=== PATIENT | female | born 1960 | race Caucasian/White ===

== ENCOUNTER 2023-04-14 09:31 | Observation (INO) | payer BC ==
[2023-04-14] MEDS ORDERED: MORPHINE 4 MG/ML SYR ONE (10:25)
[2023-04-14] MEDS ORDERED: METOCLOPRAMIDE 10 MG/2mL INJ ONE (10:25)
[2023-04-14] MEDS ORDERED: NA CHLORIDE 0.9% 50 ML ONE (10:25)
[2023-04-14] MEDS ORDERED: DIPHENHYDRAMINE 50 MG/ML VIAL ONE (10:25)
[2023-04-14] MEDS ORDERED: NA CHLORIDE 0.9% 1,000 ML ONE ×2 (10:26→17:49)
[2023-04-14 10:54] LABS: Absolute Lymphocytes (CBC) 0.7 K/uL (0.7-4.9); Hematocrit 43.4 % (36.0-45.0); MCV 92.6 fL (80-100); MPV 7.1 fL (7.6-11.3); Platelets 223 thou/uL (152-406); RBC Red Blood Cell Count 4.68 M/uL (3.86-4.86)
[2023-04-14 11:16] LABS: Albumin 3.9 g/dL (3.4-5.0); Bilirubin Total 0.6 mg/dL (0.2-1.0); Protein, Total 7.6 g/dL (6.4-8.2); Troponin High Sensitivity 6.5 pg/mL (<58.9)
--- NOTE | 2023-04-14 12:04 | RAD REPORT ---
EXAM DESCRIPTION: CT - Angio Aorta For Dissection - 04/14/2023 11:44 am CLINICAL HISTORY: . Chest and abd pain COMPARISON: 2010 CT chest TECHNIQUE: Computed tomography angiography of the chest, abdomen pelvis were obtained. 100 cc Isovue 370 was administered intravenously. Coronal and sagittal reconstruction were performed. MIP 3D reconstruction was performed All CT scans are performed using dose optimization technique as appropriate and may include automated exposure control or mA/KV adjustment according to patient size. FINDINGS: An aortic dissection is not seen. An aortic aneurysm is not displayed. The celiac, SMA and MARA are patent . A lung consolidation is not present. A pericardial effusion is not seen. A pleural effusion is not no robbie. Gallbladder is distended with thickened wall. The liver,spleen, pancreas,adrenals and kidneys demonstrate no significant abnormality. There no evidence diverticulitis. Small duodenal diverticulum 17 millimeter left thyroid nodule IMPRESSION: Negative for an aortic dissection. Distended gallbladder with thickened wall probably cholecystitis 17 millimeter left thyroid nodule. Ultrasound recommended
--- NOTE | 2023-04-14 12:05 | RAD REPORT ---
EXAM DESCRIPTION: Compa Single View04/14/2023 10:27 am CLINICAL HISTORY: Chest pain COMPARISON: 2010 FINDINGS: The lungs appear clear of acute infiltrate. The heart is normal size. Breast implants IMPRESSION: No acute abnormalities displayed
[2023-04-14] MEDS ORDERED: PIPERACIL/TAZO 3.375 GM VIAL IV ONE (12:41)
--- NOTE | 2023-04-14 13:45 | RAD REPORT ---
EXAM DESCRIPTION: US - Abdomen Exam Limited - 04/14/2023 1:00 pm CLINICAL HISTORY: ABD PAIN COMPARISON: No comparisons TECHNIQUE: Sonographic grayscale and color flow images of the right upper abdominal quadrant were o btained. FINDINGS: The gallbladder demonstrates sludge and multiple shadowing gallstones. Trace pericholecyst ic fluid, and gallbladder wall thickening, up to 6 mm. The common bile duct is normal measuring 4 mm. The liver demonstrates no findings of intrahepatic biliary dilatation. IMPRESSION: Cholelithiasis and sludge within distended gallbladder with thickened wall and trace per icholecystic fluid. Findings raise concern for acute cholecystitis.
--- NOTE | 2023-04-14 14:20 | ER ---
Nurse's Notes [facility] Name: Dai Lovell Age: 62 yrs Sex: Female : 1960 Arrival Date: 04/14/2023 Time: 09:31 Bed 7 Private MD: Kurt Duarte B Diagnosis: Acute cholecystitis Presentation: 04/14 09:45 Chief complaint: Patient states: she woke up this morning with abdominal pain that ap3 radiated into her chest and back. patient states her pain is currently an 8/10 on the pain scale. Coronavirus screen: At this time, the client does not indicate any symptoms associated with coronavirus-19. Ebola Screen: No symptoms or risks identified at this time. Initial Sepsis Screen: Does the patient meet any 2 criteria? No. Patient's initial sepsis screen is negative. Does the patient have a suspected source of infection? Yes: Acute abdominal pain. Risk Assessment: Do you want to hurt yourself or someone else? Patient reports no desire to harm self or others. Onset of symptoms was April 14, 2023. 09:45 Method Of Arrival: Ambulatory ap3 09:49 Chief complaint: Patient states: she adds that when the pain comes on, it makes her ap3 heart feel like it is being squeezed. 09:49 Acuity: JACQUELINE 2 ap3 Triage Assessment: 09:48 General: Appears uncomfortable, Behavior is calm, cooperative. Pain: Complains of pain ap3 in back, chest and abdomen Pain currently is 8 out of 10 on a pain scale. Quality of pain is described as crampy, sharp, stabbing, Pain began suddenly. Neuro: Level of Consciousness is awake, alert, obeys commands, Oriented to person, place, time, situation, Appropriate for age. Cardiovascular: Patient's skin is warm and dry. Respiratory: Airway is patent Respiratory effort is even, unlabored, Respiratory pattern is regular, symmetrical. GI: Reports nausea, vomiting. Historical: - Allergies: 09:47 No Known Allergies; ap3 - Home Meds: 09:47 Mounjaro subcutaneous [Active]; ap3 - PMHx: 09:47 None; ap3 - Immunization history:: Client reports receiving the 2nd dose of the Covid vaccine. - Social history:: Smoking status: Patient denies any tobacco usage or history of. Screenin:49 [facility] ED Fall Risk Assessment (Adult) History of falling in the last 3 months, ap3 including since admission No falls in past 3 months (0 pts). Abuse screen: Denies threats or abuse. Nutritional screening: No deficits noted. Tuberculosis screening: No symptoms or risk factors identified. Assessment: 09:48 Reassessment: please see triage assessment. kc6 10:48 Reassessment: Patient appears in no apparent distress at this time. No changes from 6 previously documented assessment. Patient and/or family updated on plan of care and expected duration. Pain level reassessed. Patient is alert, oriented x 3, equal unlabored respirations, skin warm/dry/pink. 11:40 Reassessment: Patient appears in no apparent distress at this time. No changes from kc6 previously documented assessment. Patient and/or family updated on plan of care and expected duration. Pain level reassessed. Patient is alert, oriented x 3, equal unlabored respirations, skin warm/dry/pink. 12:54 Reassessment: US at bedside. ph Vital Signs: 09:45 BP 147 / 99; Pulse 92; Resp 18; Temp 97.9; Pulse Ox 98% ; Weight 63.5 kg; Height 5 ft. ap3 3 in. ; Pain 8/10; 12:00 BP 132 / 78; Pulse 87; Resp 18; Pulse Ox 98% on R/A; ph 13:30 BP 149 / 87; Pulse 89; Resp 18; Pulse Ox 100% on R/A; ph 14:30 BP 138 / 90; Pulse 87; Resp 16; Temp 98; Pulse Ox 100% on R/A; ph 09:45 Body Mass Index 24.80 (63.50 kg, 160.02 cm) ap3 09:45 Pain Scale: Adult ap3 ED Course: 09:33 Patient arrived in ED. mr 09:33 Kurt Duarte MD is Private Physician. mr 09:37 Gerardo Hansen MD is Attending Physician. ec2 09:47 Triage completed. ap3 09:49 Arm band placed on right wrist. ap3 10:19 Jaylene Allan, KAILEY is Primary Nurse. ph 10:29 XRAY Chest (1 view) In Process Unspecified. EDMS 11:46 Angio Aorta For Dissection In Process Unspecified. EDMS 12:12 Patient has correct armband on for positive identification. Placed in gown. Bed in low ph position. Call light in reach. Side rails up X2. Door closed. Noise minimized. 12:53 Lactate w/ 2H reflex if indic. Sent. ap3 13:02 US Abdomen Limited In Process Unspecified. EDMS 14:20 Roberto Guy MD is Hospitalizing Provider. ec2 14:25 Inserted saline lock: 22 gauge in right forearm, using aseptic technique. ap3 14:26 Missed attempt(s): 22 gauge in right forearm. ap3 15:16 No provider procedures requiring assistance completed. Patient admitted, IV remains in ph place. Administered Medications: 10:41 Drug: NS 0.9% IV 1000 ml IV at 1 bolus Per protocol; 1000 mL bolus Route: IV; Rate: 1 kc6 bolus; Site: right antecubital; 12:00 Follow up: Response: No adverse reaction; IV Status: Completed infusion; IV Intake: ph 1000ml 10:42 Drug: morphine IVP or IV 4 mg IVP once over 4 mins Route: IVP; Infused Over: 4 mins; kc6 Site: right antecubital; 15:17 Follow up: Response: No adverse reaction ph 10:42 Drug: metoCLOPramide IVP 10 mg IVP once; over 1 to 2 minutes Route: IVP; Site: right kc6 antecubital; 15:17 Follow up: Response: No adverse reaction ph 10:42 Drug: diphenhydrAMINE IVP 25 mg IVP once Route: IVP; Site: right antecubital; kc6 15:17 Follow up: Response: No adverse reaction ph 15:09 Drug: Piperacillin-Tazobactam IVPB 3.375 grams IVPB once over 60 mins; (mix in NS 100 ph mL) Route: IVPB; Infused Over: 60 mins; Site: right antecubital; 15:17 Follow up: Response: No adverse reaction; IV Status: Infusion continued upon admission ph Medication: 15:16 VIS not applicable for this client. ph Intake: 12:00 IV: 1000ml; Total: 1000ml. ph Outcome: 14:20 Decision to Hospitalize by Provider. ec2 15:16 Admitted to OR accompanied by nurse, family with patient, via wheelchair, with chart, ph 15:16 Condition: stable 15:16 Instructed on the need for admit, 15:18 Patient left the ED. ph Signatures: Dispatcher [employer] ED Cortney Ojeda, Reg Reg mr JerrellJaylene, RN RN ph Adelia Marsh RN RN ap3 Sue Rosales RN RN kc6 Gerardo Hansen MD MD ec2 Corrections: (The following items were deleted from the chart) 09:49 09:45 Acuity: JACQUELINE 3 ap3 ap3 14:25 14:24 Missed attempt(s): 22 gauge in right forearm. ph ph
--- NOTE | 2023-04-14 14:20 | EDPHYS ---
Physician Documentation [facility] Name: Dai Lovell Age: 62 yrs Sex: Female : 1960 Arrival Date: 04/14/2023 Time: 09:31 Bed 7 Private MD: Kurt Duarte B ED Physician Gerardo Hansen HPI: 04/14 10:06 This 62 yrs old Female presents to ER via Ambulatory with complaints of ec2 Abdominal Pain, Vomiting/Diarrhea. 10:06 Patient arrives today for evaluation of abdominal pain. States that she started having ec2 some abdominal pain about 9 hours ago. Patient reports that she is having some nausea as well as some pain radiating into the chest. Patient reports that she has previous abdominal surgeries including umbilical hernia as well as previous C-sections. Patient denies urinary complaints. Patient reports otherwise no cough and cold symptoms. Patient reports that the pain radiates to her back as well. Patient reports that also she has been on Mounjaro for about 1 year.. Historical: - Allergies: 09:47 No Known Allergies; ap3 - Home Meds: 09:47 Mounjaro subcutaneous [Active]; ap3 - PMHx: 09:47 None; ap3 - Immunization history:: Client reports receiving the 2nd dose of the Covid vaccine. - Social history:: Smoking status: Patient denies any tobacco usage or history of. ROS: 10:06 Constitutional: as per hpi ec2 Exam: 10:06 Constitutional: GEN: NAD Head: atraumatic Eyes: EOMI Ears: External ears are ec2 normal. CV: regular rate, no murmur appreciated LUNGS: no respiratory distress, no wheezes, rales, or rhonchi ABD: non-distended, general TTP, no guarding, not rigid SKIN: no evidence of rashes MSK: no evidence of trauma NEURO: moves all extremities equally Vital Signs: 09:45 BP 147 / 99; Pulse 92; Resp 18; Temp 97.9; Pulse Ox 98% ; Weight 63.5 kg; Height 5 ft. ap3 3 in. ; Pain 8/10; 12:00 BP 132 / 78; Pulse 87; Resp 18; Pulse Ox 98% on R/A; ph 13:30 BP 149 / 87; Pulse 89; Resp 18; Pulse Ox 100% on R/A; ph 14:30 BP 138 / 90; Pulse 87; Resp 16; Temp 98; Pulse Ox 100% on R/A; ph 09:45 Body Mass Index 24.80 (63.50 kg, 160.02 cm) ap3 09:45 Pain Scale: Adult ap3 MDM: 10:06 Patient medically screened. ec2 10:06 Data reviewed: vital signs. ED course: Patient arrives today for evaluation of chest ec2 and abdominal pain. Examination remarkable for uncomfortable appearing individual was otherwise hemodynamically appropriate. Will obtain lab work, EKG, chest x-ray, CT imaging. Currently considering processes such as pancreatitis, ACS, dissection. Will treat the patient's pain with IV morphine, crystalloid as well as Reglan and Benadryl. . 11:44 ED course: CBC remarkable for slight leukocytosis. Metabolic profile shows hypokalemia ec2 noted. Lipase within normal ranges. Troponin within normal ranges. Patient does meet SIRS criteria however I have no acute identified bacterial infection and will defer antibiotic therapy at this time. . 12:11 ED course: CT imaging shows concern for possible cholecystitis, will obtain ultrasound ec2 for further elucidation of this. Patient does meet SIRS criteria with the heart rate as well as the white count, will add on a septic workup and add Zosyn for abdominal coverage.. 12:52 ED course: Of note patient with incidental thyroid nodule, instructed her to follow-up ec2 outpatient for this.. 14:09 ED course: EKG independently reviewed and interpreted by me, shows normal sinus rhythm, ec2 rate of 84, no acute ST segment elevations, nonconcerning intervals.. 14:19 ED course: I discussed the case with general surgery who will consult on the patient. ec2 Discussed case with hospitalist, pending admission.. 04/14 10:06 Order name: CBC with Diff; Complete Time: 11:44 ec2 04/14 10:06 Order name: Troponin HS; Complete Time: 11:44 ec2 04/14 10:06 Order name: CMP; Complete Time: 11:44 ec2 04/14 10:06 Order name: Lipase; Complete Time: 11:44 ec2 04/14 12:11 Order name: Blood Culture Adult (2) ec2 04/14 12:11 Order name: Lactate w/ 2H reflex if indic.; Complete Time: 13:31 ec2 04/14 12:11 Order name: Protime (+inr) ec2 04/14 12:11 Order name: Ptt, Activated ec2 04/14 10:06 Order name: XRAY Chest (1 view); Complete Time: 12:10 ec2 04/14 10:52 Order name: Angio Aorta For Dissection; Complete Time: 12:10 EDMS 04/14 12:11 Order name: US Abdomen Limited; Complete Time: 14:09 ec2 04/14 10:06 Order name: EKG; Complete Time: 10:07 ec2 04/14 10:06 Order name: Cardiac monitoring; Complete Time: 10:41 ec2 04/14 10:06 Order name: EKG - Nurse/Tech; Complete Time: 14:02 ec2 04/14 10:06 Order name: IV Saline Lock; Complete Time: 10:41 ec2 04/14 10:06 Order name: Labs collected and sent; Complete Time: 10:41 ec2 04/14 10:06 Order name: O2 Per Protocol; Complete Time: 10:41 ec2 04/14 10:06 Order name: O2 Sat Monitoring; Complete Time: 10:41 ec2 04/14 12:11 Order name: Accucheck; Complete Time: 12:32 ec2 04/14 12:11 Order name: IV Saline Lock - Large Bore; Complete Time: 12:32 ec2 04/14 12:11 Order name: Vital Signs; Complete Time: 12:32 ec2 04/14 15:03 Order name: NPO; Complete Time: 15:05 iw Administered Medications: 10:41 Drug: NS 0.9% IV 1000 ml IV at 1 bolus Per protocol; 1000 mL bolus Route: IV; Rate: 1 kc6 bolus; Site: right antecubital; 12:00 Follow up: Response: No adverse reaction; IV Status: Completed infusion; IV Intake: ph 1000ml 10:42 Drug: morphine IVP or IV 4 mg IVP once over 4 mins Route: IVP; Infused Over: 4 mins; kc6 Site: right antecubital; 15:17 Follow up: Response: No adverse reaction ph 10:42 Drug: metoCLOPramide IVP 10 mg IVP once; over 1 to 2 minutes Route: IVP; Site: right kc6 antecubital; 15:17 Follow up: Response: No adverse reaction ph 10:42 Drug: diphenhydrAMINE IVP 25 mg IVP once Route: IVP; Site: right antecubital; kc6 15:17 Follow up: Response: No adverse reaction ph 15:09 Drug: Piperacillin-Tazobactam IVPB 3.375 grams IVPB once over 60 mins; (mix in NS 100 ph mL) Route: IVPB; Infused Over: 60 mins; Site: right antecubital; 15:17 Follow up: Response: No adverse reaction; IV Status: Infusion continued upon admission ph Disposition Summary: 04/14/23 14:20 Hospitalization Ordered Notes: Hospitalization Status: Inpatient Admission ec2 Provider: Roberto Guy ec2 Location: Telemetry/MedSurg (Inpatient) ec2 Condition: Stable ec2 Problem: new ec2 Symptoms: have improved ec2 Bed/Room Type: Standard ec2 Room Assignment: ec2 Diagnosis - Acute cholecystitis ec2 Forms: - Medication Reconciliation Form ec2 - SBAR form ec2 - Leadership Thank You Letter ec2 Critical care time excluding procedures: 14:09 Critical care time: Bedside Care: 30 minutes, Consultation: 5 minutes. Total time: 35 ec2 minutes Signatures: Dispatcher [employer] Jailene Hernandez RN RN iw Jaylene Allan RN RN ph Adelia Marsh RN RN ap3 Sue Rosales RN RN kc6 Gerardo Hansen MD MD ec2 Corrections: (The following items were deleted from the chart) 10:08 10:06 Patient arrives today for evaluation of abdominal pain. States that she started ec2 having some abdominal pain about 9 hours ago. Patient reports that she is having some nausea as well as some pain radiating into the chest. Patient reports that she has previous abdominal surgeries including umbilical hernia as well as previous C-sections. Patient denies urinary complaints. Patient reports otherwise no cough and cold symptoms.. ec2 10:52 10:07 Chest Abdomen Pelvis W Con+CT.RAD.BRZ ordered. EDMS EDMS
[2023-04-14] MEDS ORDERED: BUPIVACAINE 0.25% PF 30 ML VIAL ONE (15:15)
[2023-04-14] MEDS ORDERED: Ringers Lactate 1,000 ML IV ONE (15:23)
[2023-04-14] MEDS ORDERED: SUCCINYLCHOLINE 20 MG/ML (10 ML) IV ONE (15:25)
--- NOTE | 2023-04-14 15:28 | P.HP ---
Certification for Inpatient Patient admitted to: Observation With expected LOS: <2 Midnights Patient will require the following post-hospital care: None Practitioner: I am a practitioner with admitting privileges, knowledge of patient current condition, hospital course, and medical plan of care. Services: Services provided to patient in accordance with Admission requirements found in Title 42 Section 412.3 of the Code of Federal Regulations Patient History Date of Service: 04/14/23 Reason for admission: Acute cholecystitis History of Present Illness: 62-year-old female with distant history of breast cancer presents emergency department with chief complaint of abdominal pain radiating to her back with nausea/vomiting. Her pain started at around 1:30 in the morning. She last ate at around 8 PM the night before fried eggs and toast. She was evaluated in the emergency department and her labs are significant for leukocytosis with white blood cell count 12.2 potassium 3.0 glucose 126 lactic acid 0.9 CTA dissection protocol was performed which was negative for aortic dissection showed distended gallbladder with thickened wall probably chol ecystitis, 17 mm left thyroid nodule ultrasound recommended. Follow-up abdominal ultrasound was performed showed cholelithiasis and sludge within distended gallbladder and thickened wall with trace pericholecystic fluid findings raising concern for acute cholecystitis. Patient was evaluated at bedside by general surgery and surgery plans to take her to the operating room this evening for laparoscopic cholecystectomy. - Past Medical/Surgical History -: Breast cancer 2002 -: , D&C -: Hernia repair -: Bilateral mastectomy with reconstruction -: Abdominoplasty Psychosocial/ Personal History: Lives at home with family - Social History Smoking Status: Never smoker Alcohol use: No CD- Drugs: No Caffeine use: Yes Place of Residence: Home Review of Systems 10-point ROS is otherwise unremarkable Gastrointestinal: Nausea, Vomiting, Abdominal Pain Physical Examination - Physical Exam General: Alert, In no apparent distress, Oriented x3 HEENT: Atraumatic, PERRLA Neck: Supple, 2+ carotid pulse no bruit Respiratory: Clear to auscultation bilaterally, Normal air movement Cardiovascular: Regular rate/rhythm, Normal S1 S2 Gastrointestinal: Normal bowel sounds, Tenderness (mild epigastric tenderness) Musculoskeletal: No tenderness Integumentary: No rashes Neurological: Normal speech, Normal strength at 5/5 x4 extr, Normal tone - Studies Laboratory Data (last 24 hrs) 04/14/23 04/14/23 10:40 10:40 WBC 12.20 H Hgb 15.0 Hct 43.4 Plt Count 223 Sodium 139 Potassium 3.0 L BUN 13 Creatinine 0.68 Glucose 126 H Total Bilirubin 0.6 AST 15 ALT 24 Alkaline Phosphatase 81 Lipase 22 Assessment and Plan - Plan Assessment: Sepsis secondart to acute cholecystitis History of breast cancer-2002 Plan: Sepsis secondart to acute cholecystitis SIRS criteria raise including leukocytosis, tachycardia, source of infection with cholecystitis Blood cultures obtained, lactate less than 2 NPO, IVF, plan for laparoscopic cholecystectomy today As needed pain medications Advance diet per general surgery History of breast cancer-2002 DVT PPX:SCD Code status:Full - Advance Directives Does patient have a Living Will: No Does patient have a Durable POA for Healthcare: No Critical Care: No Time Spent Managing Pts Care (In Minutes): 55
[2023-04-14] MEDS ORDERED: ROCURONIUM 50 MG/5 ML VIAL IV ONE (15:32)
[2023-04-14] MEDS ORDERED: propofoL 200 MG/20 ML VIAL IV ONE (15:33)
[2023-04-14] MEDS ORDERED: FENTANYL CITR 100 MCG/2 ML ONE (15:33)
[2023-04-14] MEDS ORDERED: MIDAZOLAM HCL 2 MG/2 ML INJ ONE (15:33)
[2023-04-14] MEDS ORDERED: MORPHINE 2 MG/ML SYR IV PRN (15:48)
[2023-04-14] MEDS ORDERED: ONDANSETRON 4 MG/2 ML VIAL IV PRN (15:48)
[2023-04-14] MEDS: NA CHLORIDE 0.9% 1,000 ML IV SCH (16:00)
[2023-04-14] MEDS ORDERED: dexAMETHasone 10 MG/ML VIAL ONE (17:17)
[2023-04-14] MEDS ORDERED: ONDANSETRON 4 MG/2 ML VIAL ONE (17:17)
[2023-04-14] MEDS ORDERED: NEOSTIGMINE 1 MG/ML -10 ML VIAL ONE (17:19)
[2023-04-14] MEDS ORDERED: GLYCOPYRROLATE 0.2 MG/ML SYR ONE (17:20)
--- NOTE | 2023-04-14 17:28 | P.OP ---
Preoperative diagnosis: Acute Calculous Cholecystitis Postoperative diagnosis: Acute Calculous Cholecystitis Primary procedure: Laparoscopic Cholecystectomy with ICG Anesthesia: GETA + Local Estimated blood loss: <10cc Specimen: Gallbladder Findings: Distended dilated, gallstones, hydrops, intrahepatic Complications: None Transferred to: Recovery Room Condition: Good
[2023-04-14] MEDS ORDERED: HYDROCODONE/APAP 5/325 MG TAB PO PRN (17:43)
[2023-04-14] MEDS ORDERED: HYDROMORPHONE HCL 1 MG/ML INJ ONE (17:44)
[2023-04-14] MEDS: ONDANSETRON 4 MG/2 ML VIAL ONE ×2 (17:44→17:45)
[2023-04-14] MEDS: KETOROLAC 30 MG/ML INJ ONE ×2 (17:45→17:47)
[2023-04-14] MEDS: HYDROMORPHONE HCL 1 MG/ML INJ ONE ×3 (17:55→18:05)
[2023-04-14 18:08] VITALS: O2SAT 94
--- NOTE | 2023-04-14 20:16 | OP ---
Date of Procedure: 04/14/2023 Surgeon: Robbie Kowalski MD, Preoperative Diagnosis: Acute calculous cholecystitis. Postoperative Diagnosis: Acute calculous cholecystitis. Procedure Performed: Laparoscopic cholecystectomy with indocyanine green cholangiography. Anesthesia: General endotracheal plus local with 0.25% Marcaine. Estimated Blood Loss: Less than 10 cc. Specimen: Gallbladder. Findings: 1.Distended gallbladder. 2.Gallstones. 3.Hydropic gallbladder. 4.Gallbladder was partially intrahepatic. 5.Gallbladder had a lateral course. Complications: None. Disposition: Patient transferred to recovery room in good condition. Procedure In Detail: After informed consent was obtained, patient was brought to the operating room, prepped and draped in the usual sterile fashion after adequate anesthesia was achieved. I made a dumont praumbilical incision down through subcutaneous tissues. I used a 5 mm 0-degree optical trocar and i ntroduced to the abdomen without evidence of complication. Insufflation was obtained to 15 mmHg at t his time. There was no injury to vital structures upon entry of the abdomen. Two additional trocars were placed, one in the epigastrium, one in the right upper quadrant. Both of these were 5 mm troca rs placed under direct visualization without incident or complication. The umbilical trocar was then upsized to a 12 mm under direct visualization without incident or complication. I then attempted to grasp the patient's gallbladder which was unable to be grasped at this time. It was quite thickened , inflamed, and hydropic. I then placed a decompression needle in the fundus of the gallbladder, dec ompressed the gallbladder as much as possible, at this point. However, it remained thickened through out the entire procedure and difficult to manage and difficult to manipulate due to its significant l ateral course as well as its significant gallstone burden. I dissected down to the Jackie's pouch of the gallbladder using electrocautery. I encircled 2 structures identified as both the cystic duct and cystic artery. These were encircled at this point. I performed indocyanine green cholangiograp hy and was able to visualize the cystic duct, common duct confluence. I then placed double titanium clips on the proximal side and singly on the distal side of both the cystic duct and cystic artery. I then ligated these structures using Endo Elizabeth. I then removed the gallbladder from the hepatic f gladys without incident or complication. I then placed the gallbladder in the EndoCatch bag and attemp robbie to remove through the umbilical trocar. However, the gallbladder was quite large, distended and firm. As such, I had to extend the incision of the midline trocar to over double the size and attemp t still required additional dilatation of the umbilicus. At this point, I ultimately got the gallbla dder out through the EndoCatch bag and sent it off for pathologic examination. Then, at this point, reinsufflation was obtained at this point. I irrigated the gallbladder bed and suctioned out all eff luent. There was no leakage of bile. Clips were found to be in good anatomic position. I did perfo rm some additional fulguration of the gallbladder bed near the mid and distal aspect of the gallbladd er bed which was superior laterally oriented. I irrigated the area once again and suctioned out the remaining effluent. No additional hemostatic measures were required. I then used a Gabriel-Martinez suture passer and passed multiple passes of an 0 Vicryl suture to reapproximate the fascia at the sup raumbilical trocar site. The abdomen was completely desufflated under direct visualization without i ncident or complication. All skin incisions were then copiously irrigated and closed with interrupte d sunita and a sterile dressing placed over top. The patient tolerated the procedure without incide nt or complication, transferred to PACU in good condition. All counts were correct at the end of the case. LISA/SON Voice ID: [id number] Report ID: [id number]
[2023-04-14] MEDS: PIPER TAZO 3.375 GM in NA CHLORIDE 0.9% 100 ML IV SCH (23:08)
[2023-04-14 23:34] VITALS: BMI 24.7
[2023-04-15] MEDS: PIPER TAZO 3.375 GM in NA CHLORIDE 0.9% 100 ML IV SCH ×2 (01:00→08:57)
[2023-04-15 02:13] LABS: Absolute Lymphocytes (CBC) 0.7 K/uL (0.7-4.9); Hematocrit 37.1 % (36.0-45.0); Lymphocytes % 5.8 % (15.3-44.8); MCV 93.1 fL (80-100); MPV 7.3 fL (7.6-11.3); Platelets 191 thou/uL (152-406); RBC Red Blood Cell Count 3.99 M/uL (3.86-4.86)
[2023-04-15 02:17] LABS: Protime INR 1.15
[2023-04-15] MEDS: NA CHLORIDE 0.9% 1,000 ML IV SCH (02:33)
[2023-04-15 02:35] LABS: Albumin 3.1 g/dL (3.4-5.0); Bilirubin Total 0.5 mg/dL (0.2-1.0); Potassium 3.6 mEq/L (3.5-5.1); Thyroid Stimulating Hormone 0.263 uIU/mL (0.358-3.740)
[2023-04-15 02:48] LABS: Blood Morphology Comment NOT SEEN (NOT SEEN); Platelet Estimate ADEQ
[2023-04-15] MEDS ORDERED: POTASSIUM CL SA 10 MEQ TAB PO ONE (09:00)
[2023-04-15 09:01] VITALS: BP 98/56; TEMP 98.1
--- NOTE | 2023-04-15 14:06 | P.DS ---
Admission Date: 04/14/23 Discharge Date: 04/15/23 Disposition: ROUTINE DISCHARGE Discharge Condition: GOOD Reason for Admission: Acute cholecystitis Brief History of Present Illness: Diagnosis: Sepsis secondart to acute cholecystitis History of breast cancer-2002 Hospital Course: Dai Lovell is a 62-year-old female with distant history of breast cancer presents to the emergency department with chief complaint of abdominal pain radiating to her back with nausea/vomiting. CTA dissection protocol was performed which was negative for aortic dissection but showed a distended gallbladder with thickened wall probably cholecystitis, 17 mm left thyroid nodule ultrasound recommended. Follow-up abdominal ultrasound was performed showed cholelithiasis and sludge within distended gallbladder and thickened wall with trace pericholecystic fluid findings raising concern for acute cholecystitis. Dr. Kowalski was consulted and Dai went to surgery for laparoscopic cholecystectomy. She has tolerated the procedure well and has tolerated Zosyn IV. She has tolerated clear liquid diet and will continue to advance slowly. She is ambulating independently, On room air sating at 96%, conversing well, alert and oriented. She is hemodynamically stable and ready for discharge. Dr. Kowalski has cleared her for discharge with instructions to not lift more than 10 pounds, Augmentin 500 mg, and [place] 5-325 mg as needed. Vital Signs/Physical Exam: Temp Pulse Resp BP Pulse Ox 98.1 F 77 18 98/56 L 91 04/15/23 08:00 04/15/23 08:00 04/15/23 08:00 04/15/23 08:00 04/15/23 08:00 Laboratory Data at Discharge: WBC 11.70 thou/uL (4.3-10.9) H 04/15/23 01:39 Hgb 12.8 g/dL (12.0-15.0) D 04/15/23 01:39 Hct 37.1 % (36.0-45.0) 04/15/23 01:39 Plt Count 191 thou/uL (152-406) 04/15/23 01:39 PT 12.6 SECONDS (9.5-12.5) H 04/15/23 01:39 INR 1.15 04/15/23 01:39 APTT 29.5 SECONDS (24.3-36.9) 04/15/23 01:39 Sodium 141 mEq/L (136-145) 04/15/23 01:39 Potassium 3.6 mEq/L (3.5-5.1) D 04/15/23 01:39 BUN 13 mg/dL (7-18) 04/15/23 01:39 Creatinine 0.49 mg/dL (0.55-1.02) L 04/15/23 01:39 Glucose 138 mg/dL (74-106) H 04/15/23 01:39 Total Bilirubin 0.5 mg/dL (0.2-1.0) 04/15/23 01:39 AST 55 U/L (15-37) H 04/15/23 01:39 ALT 55 U/L (13-56) 04/15/23 01:39 Alkaline Phosphatase 62 U/L (45-117) D 04/15/23 01:39 Lipase 22 U/L (13-75) 04/14/23 10:40 Home Medications: PARoxetine HCL [Paxil] 40 mg PO DAILY 04/14/23 Amox/Clavulanate [Augmentin 500-125 mg Tab] 500 mg PO BID 4 Days #8 tab 04/15/23 Hydrocodone/Acetaminophen [Hydrocodon-Acetaminophen 5-325] 1 tab PO Q8H PRN #15 tab 04/15/23 New Medications: Amox/Clavulanate [Augmentin 500-125 mg Tab] 500 mg PO BID 4 Days #8 tab Hydrocodone/Acetaminophen [Hydrocodon-Acetaminophen 5-325] 1 tab PO Q8H PRN #15 tab PRN Reason: Pain Scale 5-7 (Moderate) Physician Discharge Instructions: Physical Exam General: Alert, In no apparent distress, Oriented x3 HEENT: Atraumatic, PERRLA Neck: Supple, 2+ carotid pulse no bruit Respiratory: Clear to auscultation bilaterally, Normal air movement Cardiovascular: Regular rate/rhythm, Normal S1 S2 Gastrointestinal: Normal bowel sounds, Tenderness (mild epigastric tenderness), Abdomen: midline dressing CDI with abdominal binder in place Musculoskeletal: No tenderness Integumentary: No rashes Neurological: Normal speech, Normal strength at 5/5 x4 extr, Normal tone 1. Please call and schedule a follow-up appointment with your PCP in 3-5 days - Please follow-up with your PCP for medication refills/adjustments 2. Please call and schedule a follow-up appointment with Dr. Kowalski in one 3. Advance diet as tolerated 4. Activity as tolerated, no lifting more than 10 pounds 5. Care for abdominal incision as directed by Dr. Kowalski New medication Augmentin 500 mg p.o. twice daily x 4 days [place] 5325 milligram p.o. every 6 as needed Diet: [place] Activity: No lifting more than 10 lbs Followup: Horacio Kowalski MD [ACTIVE - CAN ADMIT] - Kurt Duarte MD [Primary Care Provider] - Time spent managing pt's care (in minutes): 55
--- NOTE | 2023-04-15 15:08 | EKG ---
Test Date: 2023-04-14 Test Time: 14:03:52 Supervisor Bindery: JORGE MEASUREMENT RESULTS: Intervals: Rate: 84 HI: 150 QRSD: 90 QT: 390 QTc: 460 [place]: P: 55 HI: 150 QRS: 8 T: 42 INTERPRETIVE STATEMENTS: Normal sinus rhythm Nonspecific ST and T wave abnormality Abnormal ECG Compared to ECG 10/04/2010 07:27:38 ST (T wave) deviation now present Electronically Signed On 04-15-23 15:07:29 BRIAR CUTTER by Donny Gordon
== END 2023-04-15 15:39 | disposition home or self-care (01) ==
LOC: ER 09:31 → ERHOLD 15:24 → 4TH 16:05
PROVIDERS: ADMIT Hospitalist; ATTEND Hospitalist
PROC: BF50200 Other Imaging of Bile Ducts using Fluorescing Agent, Indocyanine Green Dye, Intraoperative (ICD-10-PCS; 2023-04-14)
PROC: 0FT44ZZ Resection of Gallbladder, Percutaneous Endoscopic Approach (ICD-10-PCS; principal; 2023-04-14 18:45)
DX: K80.12 Calculus of gallbladder with acute and chronic cholecystitis without obstruction (principal); A41.9 Sepsis, unspecified organism; R11.2 Nausea with vomiting, unspecified; R10.9 Unspecified abdominal pain; D72.829 Elevated white blood cell count, unspecified; Z85.3 Personal history of malignant neoplasm of breast
CPT/HCPCS: 96361; 93005; 87040 ×2; 85025 ×2; 36415; 85610; 83605; 88304; 85730; 84443; 84484; 84439; 83690; 80053 ×2; 71275; 74175; 71045; 76705; 96375; 96374; 99285; 47563; Q9967; J2704; J2710; J2765; J1200; J2543 ×3; J2250; J3010; J1100; J1170; J2405 ×2; G0378 ×5; J7120; J7030 ×3; 88305